=== PATIENT | female | born 1965 | race Caucasian/White ===

== ENCOUNTER → 2020-07-09 | Outpatient (CLI) | payer OTHER | LOC: LAB 14:13 | PROVIDERS: ATTEND Student in an Organized Health Care Education/Training Program | DX: Z01.812 Encounter for preprocedural laboratory examination (principal); Z20.828 Contact with and (suspected) exposure to other viral communicable diseases ==

== ENCOUNTER 2020-07-14 09:06 | Inpatient (IN) | payer BC, OTHER ==
[2020-07-14] VITALS (7 sets, daily range): BP systolic 113–121; BP diastolic 68–86
[~2020-07-14] VITALS: Ht 165.1 cm; Wt 74.4 kg
[2020-07-14 10:00] LABS: CALCIUM 9.3 mg/dL (8.5-10.1); CREATININE 0.8 mg/dL (0.6-1.0); POTASSIUM 4.1 mmol/L (3.5-5.1)
[2020-07-14 10:06] LABS: ALBUMIN 4.2 g/dL (3.4-5.0); TOTAL BILIRUBIN 0.4 mg/dL (0.2-1.0); TOTAL PROTEIN 7.4 g/dL (6.4-8.2)
[2020-07-14 11:02] LABS: HEMATOCRIT 40.2 % (37.0-47.0); HEMOGLOBIN 13.9 gm/dL (12.0-15.0); MCH 32.6 pg (26.0-34.0); MCHC 34.6 g/dL (28.0-37.0); MCV 94.1 fL (80.0-100.0); RBC 4.27 mil/uL (4.20-5.00); WBC 6.5 thou/uL (4.0-11.0)
--- NOTE | 2020-07-14 14:38 | EKG ---
[facility] [place] [address] ELECTROCARDIOGRAM REPORT Name: ANDREW RENDON Room #: 150-4 [facility]..#: [id number] Admission: 07/14/20 Attend Phys: Mike Davis MD Discharge: Date of : 69 Report #: [id number] THIS REPORT FOR: cc: Priscilla Connelly MD, Mayo Reese MD, MD [facility] ~ THIS REPORT FOR: //name// [facility] Test Date: 2020-07-14 Test Time: 10:06:05 Pat Name: ANDREW RENDON Department: Room: Gender: [employer]: : 1965 Requested By: Mike Davis Order Number: [id number] MD: Mayo Romero Measurements Intervals [place] Rate: 78 P: 36 VA: 163 QRS: 11 QRSD: 82 T: -3 QT: 397 QTc: 453 Interpretive Statements Sinus rhythm Low voltage, precordial leads Borderline T abnormalities, inferior leads No previous ECG available for comparison Electronically Signed On 07-14-2020 14:38:15 CART PUSHER by Mayo Romero [email or web address] <ELECTRONICALLY SIGNED> By: Mayo Romero MD, FACC 07/14/20 1438 1006 1006 Mayo Romero MD, [facility] /EPI
[2020-07-14] MEDS ORDERED: OXYCODONE-ACET1 EACH PO (23:55)
[2020-07-15] MEDS ORDERED: DIAZEPAM 5 MG5 M1 PO (03:45)
[2020-07-15 04:15] VITALS: BP 116/73
[2020-07-15 08:00] VITALS: BP 102/72
[2020-07-15 09:53] LABS: APTT 23.1 Seconds (24.5-32.8); PROTIME 10.2 Seconds (9.3-11.4)
[2020-07-15 16:31] VITALS: BP 101/74
[2020-07-15 19:23] VITALS: BP 95/56
[2020-07-16 05:07] VITALS: BP 119/78
[2020-07-16 07:41] VITALS: BP 101/69
--- NOTE | 2020-07-16 08:30 | O ---
[facility] [place] [address] OPERATIVE REPORT Name: ANDREW RENDON Room #: 440-P ADM IN M.R.#: [id number] Admission: 07/14/20 Attend Phys: Mike Davis MD Discharge: Date of : 69 Report #: [id number] THIS REPORT FOR: cc: Priscilla Connelly MD, Priscilla Davis,Mike Strange MD ~ CC: ASHU Connelly DATE OF SERVICE: 07/14/2020 PREOPERATIVE DIAGNOSIS: Carcinoma, right breast, recent lumpectomy with involved margins plus increased risk on left. POSTOPERATIVE DIAGNOSIS: Carcinoma, right breast, recent lumpectomy with involved margins plus increased risk on left, final pathology pending. OPERATION: Bilateral skin-sparing mastectomies plus attempted Port-A-Cath placement. SURGEON: Dr. Mike Davis MD CO-COSURGEON: Dr. Spike Caldera. THEATRICAL TROUPER: Medical student, MS Archie3. SECOND ASSISTANTS: 1. Medical student, MS David3. 2. Medical student, MS Larry3. ANESTHESIA: General. DESCRIPTION OF PROCEDURE: Under satisfactory general anesthesia and with the patient in the supine position, the upper abdomen, the chest and both breasts and the neck were widely prepped with ChloraPrep solution. Sterile drapes were applied. The patient had undergone a right lumpectomy and sentinel node biopsies. The margins were involved for the lumpectomy and the patient decided she would prefer to have bilateral skin-sparing mastectomies with reconstruction. The oncologist, Dr. Gong had also requested placement of a Port-A-Cath for chemotherapy. The patient was marked for the appropriate landmarks in the holding area and then was brought to the operating room for a [address] [address] OPERATIVE REPORT Name: ANDREW RENDON Room #: 440-P [facility] [place] ..#: [id number] Admission: 07/14/20 Attend Phys: Mike Davis MD Discharge: Date of : 69 Report #: [id number] general anesthetic. She was placed in the supine position. The prep and drape was noted as above. Dr. Caldera and I had marked the patient preoperatively for the appropriate landmarks. A right transverse slightly oblique elliptical incision was made in order to fully encompass the nipple areolar complex and the recent circumareolar scar. The skin flaps were developed using electrocautery and a skin-sparing mastectomy was performed, removing the entire breast and the pectoralis fascia together with the tail of Parada. The specimen was marked with sutures for orientation purposes and then was given directly to the pathologist. Hemostasis was carefully obtained using electrocautery. The skin flaps appeared excellent. The wound was irrigated with Dr. Caldera's antibiotic solution. Hemostasis was again checked and was found to be excellent. The sponge, instrument and needle counts were reported as correct. Next, using new gloves and gowns and instruments, I proceeded with a similar incision on the left side for a left skin-sparing mastectomy, which was performed in similar fashion. The left breast and the pectoralis fascia and the tail of Parada were all resected. The specimen was marked with sutures for orientation purposes. The specimen was given to the pathologist. It should be noted that palpation of both axillary regions revealed no suspicious lymph nodes. The skin flaps on the left appeared excellent. Hemostasis was excellent. The wound was irrigated with Dr. Caldera's antibiotic solution. Next, the patient was placed in Trendelenburg position for the Port-A-Cath. A needle was inserted into the left subclavian vein without difficulty and we had excellent venous return; however, we could not thread the guidewire centrally despite several attempts. We utilized fluoroscopy to help, but this did not allow us to thread the guidewire centrally. I therefore went to the right side and performed venipuncture on the right side, but I could not get good blood return, so we abandoned the idea of a Port-A-Cath placement today. This can be placed in Interventional Radiology at a later date. At this point, I scrubbed out and then Dr. Caldera completed his reconstruction, which will be dictated separately by him. Estimated blood loss for the mastectomy portion of the operation was approximately 50 mL or less. <ELECTRONICALLY SIGNED> By: iMke Davis MD 07/16/20 0830 1347 1505 Mike Davis MD /nt
[2020-07-16 08:39] VITALS: BP 101/69
== END 2020-07-16 09:23 | disposition home or self-care (01) | DRG 583 ==
LOC: OR 09:06 → TBA 09:50 → OR 13:59 → 4S 17:14
PROVIDERS: ADMIT Specialist; ATTEND Specialist
PROC: 0HBV0ZZ Excision of Bilateral Breast, Open Approach (ICD-10-PCS; principal; 2020-07-14)
PROC: B5181ZA Fluoroscopy of Superior Vena Cava using Low Osmolar Contrast, Guidance (ICD-10-PCS; 2020-07-15)
PROC: B548ZZA Ultrasonography of Superior Vena Cava, Guidance (ICD-10-PCS; 2020-07-15)
PROC: 02HV33Z Insertion of Infusion Device into Superior Vena Cava, Percutaneous Approach (ICD-10-PCS; 2020-07-15)
DX: C50.911 Malignant neoplasm of unspecified site of right female breast (principal); Z79.899 Other long term (current) drug therapy
CPT/HCPCS: 10102; 50010; 50101; 50386; 50403; 51061; 52190; 53040; 56524; 56525; 56526; 56527; 56805; 57151; 57157; 57896; 62110; 62900; 70005